=== PATIENT | male | born 1970 | race Caucasian/White ===

== ENCOUNTER 2018-02-08 03:20 | Emergency (ER) | payer MEDICAID | END 2018-02-08 06:21 | disposition home or self-care (01) | LOC: FTE 03:20 | DX: S30.22XA Contusion of scrotum and testes, initial encounter (principal); S20.219A Contusion of unspecified front wall of thorax, initial encounter; W22.8XXA Striking against or struck by other objects, initial encounter; Y92.9 Unspecified place or not applicable | CPT/HCPCS: 71045; 71110; 71111; 76870; 99284-25 ==